=== PATIENT | male | born 1955 | race Caucasian/White ===

== ENCOUNTER 2017-12-13 14:18 | Outpatient (CLI) | payer BC ==
--- NOTE | 2017-12-13 14:43 | RAD ---
TWO VIEW CHEST: COMPARISON: 02/27/15. INDICATION: Dyspnea. FINDINGS: There is no evidence of consolidation, effusion, or discrete pneumothorax. There is osseous degenera tive change, and vascular calcification. IMPRESSION: No focal consolidation. POS: [facility]
== END 2017-12-13 14:19 | disposition home or self-care (01) ==
LOC: RAD 14:18
PROVIDERS: ATTEND Internal Medicine Critical Care Medicine
DX: R06.00 Dyspnea, unspecified (principal)
CPT/HCPCS: 71046

== ENCOUNTER 2018-04-11 05:51 | Emergency (ER) | payer BC ==
--- NOTE | 2018-04-11 09:07 | RAD ---
PORTABLE CHEST: Date: 04/11/18 HISTORY: Cough. FINDINGS/IMPRESSION: The lung gutierrez are clear. No evidence of infiltrate. Heart and mediastinum unremarkable. Fracture of left clavicle is noted. POS: [facility]
== END 2018-04-11 08:40 | disposition home or self-care (01) ==
LOC: ERS 05:51
DX: J44.1 Chronic obstructive pulmonary disease with (acute) exacerbation (principal); E11.9 Type 2 diabetes mellitus without complications; E78.5 Hyperlipidemia, unspecified; Z79.899 Other long term (current) drug therapy
CPT/HCPCS: 71045

== ENCOUNTER 2019-06-20 09:38 | Outpatient (CLI) | payer BC ==
--- NOTE | 2019-06-20 10:14 | RAD ---
RADIOGRAPH CHEST 2 VIEWS: Date: 06/20/19 HISTORY: 64-year-old male with dyspnea. FINDINGS: There is no air space density, pulmonary edema, pleural effusion, pneumothorax, or cardiomegaly. There is large mature callus around a mildly displaced fracture at the mid diaphysis of the left clav icle. Fracture lucency is indistinct. There is no interval change overall since 06/12/19. IMPRESSION: 1. No acute cardiopulmonary findings. 2. Healing left mid clavicular shaft fracture. jn [] POS: [facility]
== END 2019-06-20 09:39 | disposition home or self-care (01) ==
LOC: RAD 09:38
PROVIDERS: ATTEND Internal Medicine Critical Care Medicine
DX: R06.00 Dyspnea, unspecified (principal); S42.022D Displaced fracture of shaft of left clavicle, subsequent encounter for fracture with routine healing
CPT/HCPCS: 71046

== ENCOUNTER 2019-09-25 08:31 | Outpatient (CLI) | payer BC ==
[2019-09-25 10:37] LABS: #Basophils 0.1 thou/uL (0.0-0.2); #Eosinphils 0.3 thou/uL (0.0-0.7); #Lymphocytes 2.5 thou/uL (1.20-3.40); #Monocytes 0.7 thou/uL (0.11-0.59); #Neutrophils 4.2 thou/uL (1.40-6.50); %Eosinophils 3.5 % (0.0-10.0); %Lymphocytes 32.2 % (21.0-51.0); %Monocytes 9.5 % (0.0-10.0); %Neutrophils 53.9 % (42.0-75.0); Hemoglobin 13.3 g/dL (14.0-18.0); Mean Corpuscular HGB CONC 34.6 g/dL (32.0-36.0); Mean Corpuscular Hemoglobin 31.4 pg (27.0-31.0); Mean Corpuscular Volume 90.7 fL (78.0-98.0); Platelet Count 196 thou/uL (130-400); RBC Distribution Width 12.4 % (11.5-14.5); Red Blood Cell (RBC) Count 4.24 mill/uL (4.70-6.10); White Blood Cell (WBC) Count 7.8 thou/uL (4.8-10.8)
[2019-09-25 10:58] LABS: ALT (SGPT) 30 U/L (8-55); AST (SGOT) 28 U/L (5-34); Albumin 4.7 g/dL (3.4-4.8); Alkaline Phosphatase 97 U/L (40-110); Anion Gap 15 mmol/L (10-20); BUN (Urea Nitrogen) 10 mg/dL (8.4-25.7); Bilirubin, Total 0.7 mg/dL (0.2-1.2); Calc. Creatinine Clearance 0 mL/min (70-130); Calcium 9.2 mg/dL (7.8-10.44); Carbon Dioxide 21 mmol/L (23-31); Chloride 103 mmol/L (98-107); Estimated GFR-MDRD 89; Globulin 2.7 g/dL (2.4-3.5); Glucose 131 mg/dL (80-115); Potassium 4.4 mmol/L (3.5-5.1); Protein, Total 7.4 g/dL (5.8-8.1); Sodium 135 mmol/L (136-145)
--- NOTE | 2019-09-25 15:52 | EKG ---
Test Reason : Blood Pressure : / mmHG Vent. Rate : 078 BPM Atrial Rate : 078 BPM P-R Int : 200 ms QRS Dur : 078 ms QT Int : 376 ms P-R-T Axes : 065 046 006 degrees QTc Int : 428 ms Normal sinus rhythm Normal ECG Confirmed by GIACOMO PHELPS ([id number]) on 09/25/2019 3:51:57 PM Referred By: HERBER Confirmed By:GIACOMO PHELPS
== END 2019-09-25 08:32 | disposition home or self-care (01) ==
LOC: LABBT 08:31
PROVIDERS: ATTEND Surgery
DX: Z01.818 Encounter for other preprocedural examination (principal); K42.9 Umbilical hernia without obstruction or gangrene
CPT/HCPCS: 80053; 85025; 93005; 93010

== ENCOUNTER 2019-09-29 07:41 | Day surgery (SDC) | payer BC ==
[2019-09-25 09:14] VITALS: BMI 32.3
--- NOTE | 2019-09-29 07:33 | HP ---
CHIEF COMPLAINT: Umbilical hernia. HISTORY OF PRESENT ILLNESS: The patient is a 64-year-old male, with a bulge in his umbilicus after coughing. It is reducible. PAST MEDICAL HISTORY: COPD, diabetes. MEDICATIONS: 1. Lisinopril. 2. Simvastatin. PAST SURGICAL HISTORY: He has had a vasectomy, knee replacement, wrist surgery, hernia repair in 1969. He had bilateral inguinal hernia repair in July. FAMILY HISTORY: Stroke and cardiac disease. SOCIAL HISTORY: He is . Former smoker. ALLERGIES: TO SULFA. PHYSICAL EXAMINATION: VITAL SIGNS: Height 70, weight 224, and body mass index 31.68. GENERAL: Well-developed, well-nourished male, in no apparent distress. HEENT: Unremarkable. LUNGS: Clear. He has bilateral breath sounds. HEART: Regular rate and rhythm. ABDOMEN: He has 1.5-cm reducible umbilical hernia. EXTREMITIES: Unremarkable. ASSESSMENT: Umbilical hernia. PLAN: Umbilical hernia repair, possible mesh. CONSENT: I have discussed planned procedure as well as risk of bleeding, infection, and recurrence. He understands and gives informed consent. Job ID: [id number]
[2019-09-29] MEDS ORDERED: Fentanyl 100 MCG/2 ML VIAL ONE (08:05)
[2019-09-29] MEDS ORDERED: Albuterol Sulfate 1.25 MG/3 ML NEB ONE (08:30)
[2019-09-29] MEDS ORDERED: Albuterol Sulfate 2.5 mg/3 ml Neb NEB SCH (09:00)
[2019-09-29] MEDS ORDERED: Bupivacaine HCl 0.5%/Epinephrine 1:200,000/PF 30 ml Vial ONE (09:35)
[2019-09-29] MEDS ORDERED: Dexamethasone 20 MG/5 ML VIAL ONE (10:20)
[2019-09-29] MEDS ORDERED: Ondansetron PF 4 MG/2 ML Vial ONE (10:20)
[2019-09-29] MEDS ORDERED: Lidocaine 1% PF 5 ML VIAL ONE (10:20)
[2019-09-29] MEDS ORDERED: PROPOFOL 200 MG/20 ML VIAL ONE (10:20)
[2019-09-29] MEDS ORDERED: Labetalol HCl 100 MG/20 ML VIAL ONE (11:29)
[2019-09-29] MEDS ORDERED: HYDROcodone/Acetaminophen 5/325 mg Tablet ONE (12:16)
[2019-09-29] MEDS ORDERED: hydrALAZINE 20 MG/ML VIAL ONE (12:33)
--- NOTE | 2019-09-29 12:34 | OP ---
DATE OF PROCEDURE: 09/29/2019 PREOPERATIVE DIAGNOSIS: Umbilical hernia. PROCEDURE PERFORMED: Umbilical hernia repair with mesh. INDICATIONS: A 64-year-old male, who has a painful enlarging umbilical hernia. FINDINGS: A 1.5 cm defect, 6.4 cm mesh used. DESCRIPTION OF PROCEDURE: After informed consent was obtained, the patient was taken to the operating room, given general endotracheal anesthesia, placed in supine position. Abdomen was prepped and draped in usual fashion. Local anesthesia was infiltrated subcutaneously and deep and a subumbilical incision was performed. Subcu divided sharply. The hernia sac was dissected from the skin and surrounding fascial using blunt and sharp dissection. Hernia sac was removed. The hernia was reduced and a defect of a 1.5 cm was seen. A 6.4 cm PROCEED mesh was hydrated, rolled, and inserted intra-abdominally, then unrolled and pulled up. The tabs were sutured to the abdominal wall with interrupted 0 Ethibond. Then, the umbilical skin was sutured to the abdominal wall with interrupted 3-0 Vicryl to restore normal contour and then the skin closed with interrupted 4-0 Rapide. Steri-Strips applied. Cotton ball inserted. Sterile bandage applied. The patient tolerated the procedure well, transferred to Recovery in good condition. Sponge and needle count verified correct x2. Job ID: [id number]
== END 2019-09-29 13:18 | disposition home or self-care (01) ==
LOC: SDC 07:41
PROVIDERS: ATTEND Surgery
PROC: 0WUF0JZ Supplement Abdominal Wall with Synthetic Substitute, Open Approach (ICD-10-PCS; principal; 2019-09-29)
DX: K42.9 Umbilical hernia without obstruction or gangrene (principal); E11.9 Type 2 diabetes mellitus without complications; J44.9 Chronic obstructive pulmonary disease, unspecified; Z79.899 Other long term (current) drug therapy; Z87.891 Personal history of nicotine dependence; Z88.2 Allergy status to sulfonamides
CPT/HCPCS: J0360; J0670; J0690; J3010

== ENCOUNTER 2021-12-01 02:22 | Inpatient (IN) | payer BC, MEDICARE ==
[2021-12-01] MEDS ORDERED: Morphine 4 MG/ML VIAL ONE (03:15)
[2021-12-01] MEDS ORDERED: Ondansetron PF 4 MG/2 ML Vial ONE (03:15)
[2021-12-01] MEDS ORDERED: Benzocaine 20% Spray 60 ML CAN ONE (03:36)
[2021-12-01 03:38] LABS: ALT (SGPT) 21 U/L (8-55); AST (SGOT) 19 U/L (5-34); Albumin 3.6 g/dL (3.4-4.8); Alkaline Phosphatase 74 U/L (40-110); Anion Gap 17 mmol/L (10-20); BUN (Urea Nitrogen) 26 mg/dL (8.4-25.7); Calc. Creatinine Clearance 0 mL/min (70-130); Calcium 8.7 mg/dL (7.8-10.44); Carbon Dioxide 20 mmol/L (23-31); Chloride 97 mmol/L (98-107); Globulin 2.8 g/dL (2.4-3.5); Glucose 204 mg/dL (80-115); Hemoglobin 13.4 g/dL (14.0-18.0); Mean Corpuscular HGB CONC 36.3 g/dL (32.0-36.0); Mean Corpuscular Hemoglobin 32.8 pg (27.0-31.0); Mean Corpuscular Volume 90.4 fL (78.0-98.0); Mean Platelet Volume 8.5 fL (7.4-10.4); Platelet Count 155 thou/uL (130-400); Potassium 3.2 mmol/L (3.5-5.1); Protein, Total 6.4 g/dL (5.8-8.1); RBC Distribution Width 12.4 % (11.5-14.5); Red Blood Cell (RBC) Count 4.09 mill/uL (4.70-6.10); Sodium 131 mmol/L (136-145); White Blood Cell (WBC) Count 4.3 thou/uL (4.8-10.8)
[2021-12-01 04:01] LABS: Band 39 % (5-11); Lymphocytes 25 % (21-51); MDiff Complete? YES; Metamyelocyte 2 % (0-0); Monocytes 16 % (0-10); Neutrophil 17 % (42-75)
[2021-12-01] MEDS ORDERED: Dextrose 5% in Water 1,000 ML IV PRN (04:17)
[2021-12-01] MEDS ORDERED: HumaLOG 300 UNITS/3 ML VIAL SC PRN ×2 (04:17)
[2021-12-01] MEDS ORDERED: Acetaminophen 650 MG Suppository PR PRN (04:17)
[2021-12-01] MEDS ORDERED: Dextrose 50% Abboject 50 ML SYRINGE SLOW IVP PRN (04:17)
[2021-12-01] MEDS ORDERED: Lactated Ringer's 1,000 ML IV SCH (04:30)
[2021-12-01 04:43] VITALS: BMI 33.7
[2021-12-01 05:04] LABS: SARS-CoV-2 NAA Rapid Test Not Detected (NotDetected)
[2021-12-01] MEDS: Potassium Chloride 20 MEQ in Premix Bag 1 BAG IVPB SCH ×2 (05:49→11:54)
[2021-12-01 06:08] LABS: Lactic Acid 1.1 mmol/L (0.5-2.2)
[2021-12-01 06:11] LABS: Magnesium 1.8 mg/dL (1.6-2.6)
[2021-12-01] MEDS: Potassium Chloride 10 MEQ in Premix Bag 1 BAG IVPB SCH ×3 (10:41→13:53)
[2021-12-01] MEDS: Lactated Ringer's 1,000 ML IV SCH ×3 (11:19→20:14)
[2021-12-01 13:11] LABS: Hemoglobin 13.3 g/dL (14.0-18.0); Mean Corpuscular HGB CONC 35.2 g/dL (32.0-36.0); Mean Corpuscular Hemoglobin 32.2 pg (27.0-31.0); Mean Corpuscular Volume 91.4 fL (78.0-98.0); Mean Platelet Volume 8.9 fL (7.4-10.4); Platelet Count 168 thou/uL (130-400); RBC Distribution Width 12.6 % (11.5-14.5); Red Blood Cell (RBC) Count 4.13 mill/uL (4.70-6.10); White Blood Cell (WBC) Count 5.1 thou/uL (4.8-10.8)
[2021-12-01 13:33] LABS: Band 30 % (5-11); Lymphocytes 22 % (21-51); MDiff Complete? YES; Monocytes 13 % (0-10); Neutrophil 33 % (42-75); Platelet Morphology Comment Appears Adequate; Polychromasia SLIGHT = 2-3 cells (100X) (0-2/hpf)
[2021-12-01 13:43] LABS: Anion Gap 16 mmol/L (10-20); BUN (Urea Nitrogen) 34 mg/dL (8.4-25.7); Calc. Creatinine Clearance 58 mL/min (70-130); Carbon Dioxide 22 mmol/L (23-31); Chloride 97 mmol/L (98-107); Potassium 3.7 mmol/L (3.5-5.1); Sodium 131 mmol/L (136-145)
[2021-12-01 13:44] LABS: Calcium 8.7 mg/dL (7.8-10.44); Glucose 148 mg/dL (80-115)
[2021-12-01] MEDS: Ondansetron PF 4 MG/2 ML Vial IVP PRN (19:07)
[2021-12-01] MEDS: Famotidine/PF 20 mg/2ml Vial SLOW IVP SCH (20:10)
[2021-12-01] MEDS ORDERED: Morphine 4 MG/ML VIAL SLOW IVP SCH (20:15)
[2021-12-01] MEDS ORDERED: Ketorolac Tromethamine 30 MG/ML VIAL IVP SCH (22:00)
[2021-12-01] MEDS ORDERED: Melatonin 3 MG TAB PO SCH (22:15)
[2021-12-02] MEDS: Ondansetron PF 4 MG/2 ML Vial IVP PRN ×2 (04:23→13:27)
[2021-12-02] MEDS ORDERED: Morphine 4 MG/ML VIAL SLOW IVP SCH ×2 (04:30→08:30)
[2021-12-02] MEDS: Lactated Ringer's 1,000 ML IV SCH (04:37)
[2021-12-02 06:45] LABS: Anion Gap 12 mmol/L (10-20); BUN (Urea Nitrogen) 26 mg/dL (8.4-25.7); Calc. Creatinine Clearance 99 mL/min (70-130); Calcium 8.6 mg/dL (7.8-10.44); Carbon Dioxide 24 mmol/L (23-31); Chloride 96 mmol/L (98-107); Glucose 156 mg/dL (80-115); Sodium 129 mmol/L (136-145)
[2021-12-02 08:07] LABS: Magnesium 2.1 mg/dL (1.6-2.6); Phosphorus 2.9 mg/dL (2.3-4.7)
[2021-12-02] MEDS: Famotidine/PF 20 mg/2ml Vial SLOW IVP SCH ×2 (08:19→21:01)
[2021-12-02] MEDS: NS 0.9% w/ 20 MEQ KCL 1,000 ML/1,000 ML BAG IV SCH ×2 (08:19→17:03)
[2021-12-02] MEDS ORDERED: Famotidine/PF 20 mg/2ml Vial SLOW IVP SCH (09:00)
[2021-12-02] MEDS: Acetaminophen 325 MG TAB PO SCH ×3 (10:08→21:58)
[2021-12-02] MEDS: Potassium Chloride 10 MEQ in Premix Bag 1 BAG IVPB SCH ×4 (10:09→15:01)
[2021-12-02] MEDS ORDERED: Promethazine HCl 12.5 MG in Sodium Chloride 0.9% 50 ML IVPB PRN (16:42)
[2021-12-02] MEDS ORDERED: Albuterol Sulfate 2.5 mg/3 ml Neb NEB PRN (17:03)
[2021-12-02] MEDS ORDERED: hydrALAZINE 20 MG/ML VIAL SLOW IVP PRN (17:55)
[2021-12-02 18:14] LABS: Anion Gap 15 mmol/L (10-20); BUN (Urea Nitrogen) 20 mg/dL (8.4-25.7); Calc. Creatinine Clearance 105 mL/min (70-130); Carbon Dioxide 23 mmol/L (23-31); Chloride 100 mmol/L (98-107); Glucose 139 mg/dL (80-115); Magnesium 2.1 mg/dL (1.6-2.6); Phosphorus 3.1 mg/dL (2.3-4.7); Potassium 4.1 mmol/L (3.5-5.1); Sodium 134 mmol/L (136-145)
[2021-12-02] MEDS: Melatonin 3 MG TAB PO SCH (21:01)
[2021-12-02] MEDS: Rosuvastatin 20 MG TAB PO SCH (21:01)
[2021-12-03] MEDS: NS 0.9% w/ 20 MEQ KCL 1,000 ML/1,000 ML BAG IV SCH ×3 (00:25→16:54)
[2021-12-03] MEDS: Ketorolac Tromethamine 30 MG/ML VIAL IVP SCH ×4 (00:25→17:44)
[2021-12-03] MEDS: Acetaminophen 325 MG TAB PO SCH ×4 (04:43→21:04)
[2021-12-03 05:22] LABS: Chloride 105 mmol/L (98-107); Potassium 3.8 mmol/L (3.5-5.1); Sodium 135 mmol/L (136-145)
[2021-12-03 05:31] LABS: Calcium 8.8 mg/dL (7.8-10.44)
[2021-12-03 05:32] LABS: Glucose 88 mg/dL (80-115)
[2021-12-03 05:33] LABS: Anion Gap 17 mmol/L (10-20); Carbon Dioxide 16 mmol/L (23-31)
[2021-12-03 05:35] LABS: Calc. Creatinine Clearance 123 mL/min (70-130)
[2021-12-03 05:36] LABS: BUN (Urea Nitrogen) 17 mg/dL (8.4-25.7)
[2021-12-03 05:37] LABS: Magnesium 2.3 mg/dL (1.6-2.6)
[2021-12-03 06:30] LABS: Hemoglobin 12.1 g/dL (14.0-18.0); Mean Corpuscular HGB CONC 34.9 g/dL (32.0-36.0); Mean Corpuscular Hemoglobin 31.9 pg (27.0-31.0); Mean Corpuscular Volume 91.5 fL (78.0-98.0); Mean Platelet Volume 8.5 fL (7.4-10.4); Platelet Count 196 thou/uL (130-400); RBC Distribution Width 12.4 % (11.5-14.5); Red Blood Cell (RBC) Count 3.78 mill/uL (4.70-6.10); White Blood Cell (WBC) Count 5.1 thou/uL (4.8-10.8)
[2021-12-03 08:09] LABS: Band 31 % (5-11); Eosinophils 5 % (0-10); Lymphocytes 28 % (21-51); MDiff Complete? YES; Monocytes 18 % (0-10); Myelocyte 2 % (0-0); Neutrophil 16 % (42-75); Platelet Morphology Comment Appears Adequate; Polychromasia SLIGHT = 2-3 cells (100X) (0-2/hpf)
[2021-12-03] MEDS: Famotidine/PF 20 mg/2ml Vial SLOW IVP SCH ×2 (08:19→21:05)
[2021-12-03] MEDS: Enoxaparin Sodium 40 MG/0.4 ML SYRINGE SC SCH (08:19)
[2021-12-03] MEDS: Ipratropium Bromide 2.5 ml Neb NEB SCH (08:44)
[2021-12-03] MEDS: Rosuvastatin 20 MG TAB PO SCH (21:05)
[2021-12-03] MEDS: Melatonin 3 MG TAB PO SCH (21:05)
[2021-12-04] MEDS: NS 0.9% w/ 20 MEQ KCL 1,000 ML/1,000 ML BAG IV SCH ×3 (01:00→18:15)
[2021-12-04] MEDS: Acetaminophen 325 MG TAB PO SCH ×4 (05:05→21:28)
[2021-12-04] MEDS: Ipratropium Bromide 2.5 ml Neb NEB SCH (07:37)
[2021-12-04] MEDS: Enoxaparin Sodium 40 MG/0.4 ML SYRINGE SC SCH (09:15)
[2021-12-04] MEDS: Famotidine/PF 20 mg/2ml Vial SLOW IVP SCH ×2 (09:16→21:25)
[2021-12-04] MEDS ORDERED: Iopamidol-370 76% 500 ML 1 ML ONE (09:55)
[2021-12-04] MEDS ORDERED: metroNIDAZOLE 500 MG TAB PO SCH (15:00)
[2021-12-04] MEDS: Melatonin 3 MG TAB PO SCH (21:25)
[2021-12-04] MEDS: Rosuvastatin 20 MG TAB PO SCH (21:26)
[2021-12-05] MEDS ORDERED: Morphine 4 MG/ML VIAL SLOW IVP SCH (03:45)
[2021-12-05] MEDS: Acetaminophen 325 MG TAB PO SCH ×4 (03:51→21:18)
[2021-12-05] MEDS: NS 0.9% w/ 20 MEQ KCL 1,000 ML/1,000 ML BAG IV SCH ×2 (03:51→16:23)
[2021-12-05 06:22] LABS: Anion Gap 12 mmol/L (10-20); BUN (Urea Nitrogen) Less than 4 mg/dL (8.4-25.7); Band 12 % (5-11); Calc. Creatinine Clearance 148 mL/min (70-130); Calcium 8.7 mg/dL (7.8-10.44); Carbon Dioxide 20 mmol/L (23-31); Chloride 108 mmol/L (98-107); Eosinophils 2 % (0-10); Glucose 119 mg/dL (80-115); Hemoglobin 11.8 g/dL (14.0-18.0); Lymphocytes 31 % (21-51); MDiff Complete? YES; Magnesium 1.7 mg/dL (1.6-2.6); Mean Corpuscular HGB CONC 35.1 g/dL (32.0-36.0); Mean Corpuscular Hemoglobin 32.3 pg (27.0-31.0); Mean Corpuscular Volume 92.3 fL (78.0-98.0); Mean Platelet Volume 8.1 fL (7.4-10.4); Monocytes 15 % (0-10); Myelocyte 2 % (0-0); Neutrophil 38 % (42-75); Phosphorus 3.1 mg/dL (2.3-4.7); Platelet Count 222 thou/uL (130-400); Platelet Morphology Comment Appears Adequate; Potassium 4.1 mmol/L (3.5-5.1); RBC Distribution Width 12.4 % (11.5-14.5); RBC Morphology Normal; Red Blood Cell (RBC) Count 3.64 mill/uL (4.70-6.10); Sodium 136 mmol/L (136-145); White Blood Cell (WBC) Count 7.7 thou/uL (4.8-10.8)
[2021-12-05] MEDS: Ipratropium Bromide 2.5 ml Neb NEB SCH (07:13)
[2021-12-05] MEDS ORDERED: hydrALAZINE 20 MG/ML VIAL SLOW IVP SCH (07:27)
[2021-12-05] MEDS ORDERED: Piperacillin/Tazobactam 3.375 GM in Sodium Chloride 0.9% 100 ML IVPB SCH ×2 (07:28→08:00)
[2021-12-05] MEDS: Famotidine/PF 20 mg/2ml Vial SLOW IVP SCH ×2 (08:31→21:16)
[2021-12-05] MEDS: Lisinopril 10 MG TAB PO SCH (08:32)
[2021-12-05] MEDS ORDERED: Magnesium Sulfate 4 GM in Sodium Chloride 0.9% 250 ML 250 ML IV SCH (09:00)
[2021-12-05] MEDS ORDERED: Fentanyl 100 MCG/2 ML VIAL ONE ×2 (10:16→12:50)
[2021-12-05] MEDS ORDERED: EPINEPHrine 1 MG/ML AMP ONE (10:21)
[2021-12-05] MEDS ORDERED: Bupivacaine 0.25% 10 ML VIAL ONE ×2 (10:21→10:22)
[2021-12-05] MEDS ORDERED: Bupivacaine PF 0.5% 30 ML VIAL ONE (10:21)
[2021-12-05] MEDS ORDERED: PROPOFOL 200 MG/20 ML VIAL ONE (11:15)
[2021-12-05] MEDS ORDERED: Dexamethasone 20 MG/5 ML VIAL ONE (11:15)
[2021-12-05] MEDS ORDERED: Rocuronium Bromide 10 MG/ML (10ML VIAL) ONE (11:15)
[2021-12-05] MEDS ORDERED: Lidocaine 1% PF 5 ML VIAL ONE (11:15)
[2021-12-05] MEDS ORDERED: Ondansetron PF 4 MG/2 ML Vial ONE (11:15)
[2021-12-05] MEDS ORDERED: SUGAMMADEX SODIUM 200 MG/2 ML VIAL ONE (12:16)
[2021-12-05] MEDS ORDERED: Ondansetron HCl/PF 4 MG/2 ML Vial IVP PRN (12:43)
[2021-12-05] MEDS ORDERED: Promethazine HCl 25 MG/ML VIAL IM PRN (12:43)
[2021-12-05] MEDS ORDERED: Promethazine HCl 25 MG/ML VIAL IVPB PRN (12:43)
[2021-12-05] MEDS ORDERED: traMADol HCl 50 MG TAB PO PRN (15:04)
[2021-12-05] MEDS: Piperacillin/Tazobactam 3.375 GM in Sodium Chloride 0.9% 100 ML IVPB SCH ×2 (15:08→21:19)
[2021-12-05] MEDS: Enoxaparin Sodium 40 MG/0.4 ML SYRINGE SC SCH (15:09)
[2021-12-05] MEDS: traMADol HCl 50 MG TAB PO SCH (16:21)
[2021-12-05] MEDS: Melatonin 3 MG TAB PO SCH (21:16)
[2021-12-05] MEDS: Rosuvastatin 20 MG TAB PO SCH (21:16)
[2021-12-06] MEDS: traMADol HCl 50 MG TAB PO SCH ×2 (01:19→05:49)
[2021-12-06] MEDS: Acetaminophen 325 MG TAB PO SCH ×2 (05:48→08:54)
[2021-12-06] MEDS: Piperacillin/Tazobactam 3.375 GM in Sodium Chloride 0.9% 100 ML IVPB SCH (05:49)
[2021-12-06 06:04] LABS: #Eosinphils 0.1 thou/uL (0.0-0.7); #Lymphocytes 2.1 thou/uL (1.20-3.40); #Monocytes 1.3 thou/uL (0.11-0.59); #Neutrophils 6.7 thou/uL (1.40-6.50); %Basophils 0.1 % (0.0-1.0); %Eosinophils 0.6 % (0.0-10.0); %Lymphocytes 20.5 % (21.0-51.0); %Monocytes 12.7 % (0.0-10.0); Mean Corpuscular HGB CONC 35.1 g/dL (32.0-36.0); Mean Corpuscular Hemoglobin 32.3 pg (27.0-31.0); Mean Corpuscular Volume 91.9 fL (78.0-98.0); Mean Platelet Volume 7.6 fL (7.4-10.4); Platelet Count 267 thou/uL (130-400); RBC Distribution Width 12.8 % (11.5-14.5); Red Blood Cell (RBC) Count 3.71 mill/uL (4.70-6.10); White Blood Cell (WBC) Count 10.1 thou/uL (4.8-10.8)
[2021-12-06 06:26] LABS: Anion Gap 16 mmol/L (10-20); BUN (Urea Nitrogen) 5 mg/dL (8.4-25.7); Calc. Creatinine Clearance 140 mL/min (70-130); Carbon Dioxide 17 mmol/L (23-31); Chloride 106 mmol/L (98-107); Glucose 116 mg/dL (80-115); Magnesium 1.9 mg/dL (1.6-2.6); Phosphorus 3.3 mg/dL (2.3-4.7); Potassium 4.3 mmol/L (3.5-5.1); Sodium 135 mmol/L (136-145)
[2021-12-06] MEDS: Ipratropium Bromide 2.5 ml Neb NEB SCH (07:08)
[2021-12-06] MEDS: Lisinopril 10 MG TAB PO SCH (08:53)
[2021-12-06] MEDS: Famotidine/PF 20 mg/2ml Vial SLOW IVP SCH (08:53)
[2021-12-06] MEDS: Enoxaparin Sodium 40 MG/0.4 ML SYRINGE SC SCH (08:54)
[2021-12-06 13:09] VITALS: BP 131/77; TEMP 98
== END 2021-12-06 13:50 | disposition home or self-care (01) | DRG 342 ==
LOC: ERS 02:22 → SURG A 03:04
PROVIDERS: ADMIT Student in an Organized Health Care Education/Training Program; ATTEND Internal Medicine
PROC: 0D9670Z Drainage of Stomach with Drainage Device, Via Natural or Artificial Opening (ICD-10-PCS; 2021-12-01)
PROC: 0DTJ4ZZ Resection of Appendix, Percutaneous Endoscopic Approach (ICD-10-PCS; principal; 2021-12-05)
DX: K35.80 Unspecified acute appendicitis (principal); K56.600 Partial intestinal obstruction, unspecified as to cause; N17.9 Acute kidney failure, unspecified; K57.32 Diverticulitis of large intestine without perforation or abscess without bleeding; Z20.822 Contact with and (suspected) exposure to COVID-19; J44.9 Chronic obstructive pulmonary disease, unspecified; I10 Essential (primary) hypertension; E78.5 Hyperlipidemia, unspecified; E78.00 Pure hypercholesterolemia, unspecified; Z96.653 Presence of artificial knee joint, bilateral; E87.6 Hypokalemia; Z98.890 Other specified postprocedural states; Z88.2 Allergy status to sulfonamides; Z79.899 Other long term (current) drug therapy; Z79.84 Long term (current) use of oral hypoglycemic drugs
CPT/HCPCS: 36415; 36416; 74177; 74250; 80048; 80053; 83605; 83735; 84100; 85007; 85025; 85027; 87324; 87449; 88304; 93005; 93010; 94640; 96374; 96375; J0171; J0360; J1100; J1650; J1885; J2270; J2405; J2543; J2704; J3010; J3475; J3480; J3490; J7050; J7120; Q9967; S0020; S0028; U0002

== ENCOUNTER 2022-10-28 07:13 | Emergency (ER) | payer MEDICARE ==
[2022-10-28 08:07] LABS: #Eosinphils 0.1 thou/uL (0.0-0.7); #Lymphocytes 1.6 thou/uL (1.20-3.40); #Monocytes 0.7 thou/uL (0.11-0.59); #Neutrophils 6.3 thou/uL (1.40-6.50); %Basophils 0.4 % (0.0-1.0); %Eosinophils 1.7 % (0.0-10.0); %Lymphocytes 17.7 % (21.0-51.0); %Monocytes 8.4 % (0.0-10.0); %Neutrophils 71.7 % (42.0-75.0); Hemoglobin 13.3 g/dL (14.0-18.0); Mean Corpuscular HGB CONC 34.4 g/dL (32.0-36.0); Mean Corpuscular Hemoglobin 31.9 pg (27.0-31.0); Mean Corpuscular Volume 92.7 fl (78.0-98.0); Mean Platelet Volume 9.2 fL (7.4-10.4); Platelet Count 155 10x3/uL (130-400); RBC Distribution Width 12.2 % (11.5-14.5); Red Blood Cell (RBC) Count 4.17 mill/uL (4.70-6.10); White Blood Cell (WBC) Count 8.7 10x3/uL (4.8-10.8)
[2022-10-28 08:30] LABS: ALT (SGPT) 36 U/L (8-55); AST (SGOT) 26 U/L (5-34); Albumin 4.3 g/dL (3.4-4.8); Alkaline Phosphatase 117 U/L (40-110); Anion Gap 14 mmol/L (10-20); BUN (Urea Nitrogen) 8 mg/dL (8.4-25.7); Bilirubin, Total 1.1 mg/dL (0.2-1.2); Calc. Creatinine Clearance 0 mL/min (70-130); Calcium 9.5 mg/dL (7.8-10.44); Carbon Dioxide 20 mmol/L (23-31); Chloride 101 mmol/L (98-107); Estimated GFR 95; Glucose 198 mg/dL (80-115); Protein, Total 7.3 g/dL (5.8-8.1); Sodium 131 mmol/L (136-145)
[2022-10-28 09:18] LABS: SARS-CoV-2 NAA Rapid Test DETECTED (NotDetected)
[2022-10-28] MEDS ORDERED: PROVENTIL INHALER 6.7 G (200 INHALATIONS) ONE (10:17)
[2022-10-28] MEDS ORDERED: Acetaminophen 500 MG TAB ONE (10:17)
[2022-10-28] MEDS ORDERED: Albuterol 200 PUFF (6.7GM INHALER) ONE (10:19)
== END 2022-10-28 10:35 | disposition home or self-care (01) ==
LOC: ERS 07:13
DX: U07.1 COVID-19 (principal); J44.9 Chronic obstructive pulmonary disease, unspecified; E11.9 Type 2 diabetes mellitus without complications; E78.5 Hyperlipidemia, unspecified; E78.00 Pure hypercholesterolemia, unspecified; Z79.899 Other long term (current) drug therapy
CPT/HCPCS: 0240U; 71045; 80053; 84484; 85025; 93005; 36415

== ENCOUNTER 2022-11-24 19:30 | Outpatient (CLI) | payer MEDICARE, OTHER | END 2022-11-24 19:31 | disposition home or self-care (01) | LOC: SLEEPLAB 19:30 | PROVIDERS: ATTEND Internal Medicine Critical Care Medicine | DX: G47.33 Obstructive sleep apnea (adult) (pediatric) (principal) | CPT/HCPCS: 95810 ==

== ENCOUNTER 2022-12-23 19:00 | Outpatient (CLI) | payer MEDICARE, OTHER | END 2022-12-23 19:01 | disposition home or self-care (01) | LOC: SLEEPLAB 19:00 | PROVIDERS: ATTEND Internal Medicine Critical Care Medicine | DX: G47.33 Obstructive sleep apnea (adult) (pediatric) (principal); G47.61 Periodic limb movement disorder | CPT/HCPCS: 95811 ==

== ENCOUNTER 2023-11-03 10:35 | Observation (INO) | payer MEDICARE ==
[2023-11-03] MEDS ORDERED: Nitroglycerin 2% Ointment 1 INCH/1 GM Packet ONE (10:59)
[2023-11-03] MEDS ORDERED: Aspirin Chewable 81 MG TAB ONE (10:59)
[2023-11-03 11:19] LABS: #Basophils 0.1 thou/uL (0.0-0.2); #Eosinphils 0.2 thou/uL (0.0-0.7); #Monocytes 0.6 thou/uL (0.11-0.59); #Neutrophils 4.8 thou/uL (1.40-6.50); %Basophils 0.7 % (0.0-1.0); %Eosinophils 2.1 % (0.0-10.0); %Lymphocytes 29.9 % (21.0-51.0); %Monocytes 7.5 % (0.0-10.0); %Neutrophils 59.6 % (42.0-75.0); Hemoglobin 13.4 g/dL (14.0-18.0); Mean Corpuscular HGB CONC 35.3 g/dL (32.0-36.0); Mean Corpuscular Hemoglobin 30.9 pg (27.0-31.0); Mean Corpuscular Volume 87.8 fl (78.0-98.0); Mean Platelet Volume 10.3 fL (7.4-10.4); Platelet Count 206 10x3/uL (130-400); RBC Distribution Width 12.9 % (11.5-14.5); Red Blood Cell (RBC) Count 4.33 mill/uL (4.70-6.10); White Blood Cell (WBC) Count 8.1 10x3/uL (4.8-10.8)
[2023-11-03 11:44] LABS: ALT (SGPT) 18 U/L (8-55); AST (SGOT) 15 U/L (5-34); Albumin 4.2 g/dL (3.4-4.8); Alkaline Phosphatase 94 U/L (40-110); Anion Gap 14 mmol/L (10-20); BUN (Urea Nitrogen) 10 mg/dL (8.4-25.7); Bilirubin, Total 0.8 mg/dL (0.2-1.2); Calc. Creatinine Clearance 0 mL/min (70-130); Calcium 9.4 mg/dL (7.8-10.44); Carbon Dioxide 22 mmol/L (23-31); Chloride 104 mmol/L (98-107); Estimated GFR 90; Globulin 3.1 g/dL (2.4-3.5); Glucose 184 mg/dL (80-115); Lipase 34 U/L (8-78); Potassium 3.7 mmol/L (3.5-5.1); Protein, Total 7.3 g/dL (5.8-8.1); Sodium 136 mmol/L (136-145)
[2023-11-03 11:48] LABS: Troponin I Less than 0.010 ng/mL (< 0.028)
[2023-11-03] MEDS ORDERED: Acetaminophen 325 MG TAB PO PRN (13:12)
[2023-11-03] MEDS ORDERED: HumaLOG 300 UNITS/3 ML VIAL SC PRN ×2 (13:31)
[2023-11-03] MEDS ORDERED: Dextrose 50% Abboject 50 ML SYRINGE SLOW IVP PRN (13:31)
[2023-11-03] MEDS ORDERED: Glucagon 1 MG/ML KIT IM PRN (13:31)
[2023-11-03] MEDS ORDERED: Dextrose 5% in Water 1,000 ML IV PRN (13:31)
[2023-11-03 15:01] VITALS: BMI 34.1
[2023-11-03] MEDS ORDERED: FLU VACC QS2023(65UP)/MF59C/PF 60 MCG/0.5 ML SYRINGE IM ONE (15:15)
[2023-11-03 17:52] LABS: Hemoglobin A1c 8.1 % (4.0-6.0)
[2023-11-03] MEDS: Nitroglycerin 2% Ointment 1 INCH/1 GM Packet TOP SCH (17:53)
[2023-11-03 18:13] LABS: Troponin I Less than 0.010 ng/mL (< 0.028)
[2023-11-03 20:44] LABS: Troponin I Less than 0.010 ng/mL (< 0.028)
[2023-11-03] MEDS ORDERED: Rosuvastatin 20 MG TAB PO SCH (21:00)
[2023-11-04] MEDS: Nitroglycerin 2% Ointment 1 INCH/1 GM Packet TOP SCH ×2 (02:11→13:39)
[2023-11-04 05:10] LABS: #Basophils 0.1 thou/uL (0.0-0.2); #Eosinphils 0.2 thou/uL (0.0-0.7); #Monocytes 0.6 thou/uL (0.11-0.59); #Neutrophils 3.2 thou/uL (1.40-6.50); %Basophils 0.8 % (0.0-1.0); %Eosinophils 2.9 % (0.0-10.0); %Lymphocytes 37.6 % (21.0-51.0); %Monocytes 9.6 % (0.0-10.0); %Neutrophils 48.8 % (42.0-75.0); Hematocrit 38.3 % (42.0-52.0); Hemoglobin 13.1 g/dL (14.0-18.0); Mean Corpuscular HGB CONC 34.2 g/dL (32.0-36.0); Mean Corpuscular Hemoglobin 30.5 pg (27.0-31.0); Mean Corpuscular Volume 89.3 fl (78.0-98.0); Mean Platelet Volume 10.8 fL (7.4-10.4); Platelet Count 204 10x3/uL (130-400); Red Blood Cell (RBC) Count 4.29 mill/uL (4.70-6.10); White Blood Cell (WBC) Count 6.6 10x3/uL (4.8-10.8)
[2023-11-04 07:20] LABS: ALT (SGPT) 18 U/L (8-55); AST (SGOT) 17 U/L (5-34); Albumin 4.1 g/dL (3.4-4.8); Alkaline Phosphatase 84 U/L (40-110); Anion Gap 13 mmol/L (10-20); BUN (Urea Nitrogen) 10 mg/dL (8.4-25.7); Calc. Creatinine Clearance 107 mL/min (70-130); Calcium 9.3 mg/dL (7.8-10.44); Carbon Dioxide 22 mmol/L (23-31); Cardiac Risk 3.8 (Less than 4.5); Chloride 105 mmol/L (98-107); Cholesterol 184 mg/dl (< 200 Desired); Estimated GFR 85; Globulin 2.8 g/dL (2.4-3.5); Glucose 155 mg/dL (80-115); HDL Cholesterol 49 mg/dL (>60 Neg Risk); LDL Cholesterol, Calculated 82 mg/dL; Potassium 3.9 mmol/L (3.5-5.1); Protein, Total 6.9 g/dL (5.8-8.1); Sodium 136 mmol/L (136-145); Triglycerides 263 mg/dL (Less than 150)
[2023-11-04] MEDS ORDERED: Empagliflozin 10 MG TAB PO SCH (09:00)
[2023-11-04] MEDS ORDERED: Lisinopril 10 MG TAB PO SCH (09:00)
[2023-11-04] MEDS ORDERED: Regadenoson 0.4 MG/5 ML SYRINGE ONE (09:45)
[2023-11-04 13:35] VITALS: BP 145/76; TEMP 97.6
[2023-11-04] MEDS ORDERED: FLU VACC QS2023-24(6MOS UP)/PF 60 MCG/0.5 ML SYRINGE IM ONE (15:52)
== END 2023-11-04 16:01 | disposition home or self-care (01) ==
LOC: ERS 10:35 → 2SW 12:31
PROVIDERS: ADMIT Family Medicine; ATTEND Family Medicine
DX: I20.9 Angina pectoris, unspecified (principal); I34.81 Nonrheumatic mitral (valve) annulus calcification; I07.1 Rheumatic tricuspid insufficiency; I34.0 Nonrheumatic mitral (valve) insufficiency; I35.8 Other nonrheumatic aortic valve disorders; I10 Essential (primary) hypertension; E11.9 Type 2 diabetes mellitus without complications; J44.9 Chronic obstructive pulmonary disease, unspecified; E78.1 Pure hyperglyceridemia; Z88.2 Allergy status to sulfonamides; Z79.899 Other long term (current) drug therapy; Z79.84 Long term (current) use of oral hypoglycemic drugs
CPT/HCPCS: 71045; 78452; 80053; 80061; 82962 ×2; 83036; 83690; 83880; 84484 ×2; 85025; 90694; 93005; 93017; 93306; 94760; 99285; A9502; G0008; G0378 ×2; J2785; 36415; 36416; 84443; 90471; J1650